=== PATIENT | male | born 1960 | race Caucasian/White ===

== ENCOUNTER → 2024-03-09 | Outpatient (CLI) | payer BC, SELFPAY ==
[2024-03-09 09:08] LABS: Uric Acid 8.4 mg/dL (3.7-9.2)
== END | disposition home or self-care (01) ==
LOC: COPL 06:53
PROVIDERS: PCP Nurse Practitioner Family; Referring Provider Nurse Practitioner Family; Visit Provider Nurse Practitioner Family
DX: M10.00 Idiopathic gout, unspecified site (principal)
CPT/HCPCS: 36415; 84550